=== PATIENT | male | born 2005 | race Caucasian/White ===

== ENCOUNTER 2023-11-07 11:47 | Emergency (ER) | payer OTHER ==
[~2023-11-07] VITALS: Ht 182.9 cm; Wt 84.1 kg
[~2023-11-07 11:47] MED LIST: ACET-3685 PO
[2023-11-07 12:02] VITALS: TEMP 98.5
[2023-11-07 12:21] VITALS: BP 114/66; PULSE 70; RESP 18
== END 2023-11-07 13:09 | disposition home or self-care (01) ==
LOC: EMS 11:47
DX: R55 Syncope and collapse (principal); R42 Dizziness and giddiness
CPT/HCPCS: 93005; 99283